=== PATIENT | male | born 1980 | race Caucasian/White ===

== ENCOUNTER 2018-10-26 11:55 | Outpatient (CLI) | payer OTHER ==
--- NOTE | 2018-10-26 14:13 | RAD ---
RIGHT KNEE FOUR VIEWS: INDICATIONS: Knee pain. FINDINGS: Joint spaces are preserved. No fracture. No joint effusion. No significant degenerative change. IMPRESSION: No acute findings. POS: [facility]
== END 2018-10-26 11:56 | disposition home or self-care (01) ==
LOC: SCSRAD 11:55
PROVIDERS: ATTEND Family Medicine
DX: M25.561 Pain in right knee (principal); S89.91XS Unspecified injury of right lower leg, sequela

== ENCOUNTER 2019-02-15 15:13 | Outpatient (CLI) | payer OTHER ==
--- NOTE | 2019-02-15 16:41 | MRI ---
MRI Lower Ext Jt Rt WO Con History: Knee pain Comparison: None Findings: Medial meniscus: Vertical longitudinal tear through the peripheral zone posterior horn body junction extending to the posterior horn sparing the root attachment. Lateral meniscus: Superior articular surface flap tear body anterior horn and posterior horn which ex tends into the anterior horn superior articular surface. 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 Posterior cruciate ligament is intact. Lateral collateral ligament and biceps tendon are abnormally thickened and scarred from prior rupture . The lateral collateral ligament does not appear to have a normal implantation upon the fibula with a 9 mm gap. Medial collateral ligament is intact. Extensor mechanism: Quadriceps tendon, patella, and patellar tendons are intact. Cartilage: Patellofemoral compartment: Intact Medial compartment: Intact Lateral compartment: Intact Muscles: Muscle signal and bulk is normal. Impression: 1. 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 2. Vertical longitudinal tear posterior horn body junction medial meniscus peripheral zone extending into the posterior horn sparing the root attachment. 3. Superior articular surface flap tear throughout the lateral meniscus with a small radial component of the anterior horn. 4. Retracted scarred distal insertion lateral collateral ligament with a 9 mm gap between the distal fibers and the fibular head.
== END 2019-02-15 15:14 | disposition home or self-care (01) ==
LOC: SCSMRI 15:13
PROVIDERS: ATTEND Family Medicine
DX: S89.91XS Unspecified injury of right lower leg, sequela (principal); S83.511D Sprain of anterior cruciate ligament of right knee, subsequent encounter; S83.241D Other tear of medial meniscus, current injury, right knee, subsequent encounter; S83.281D Other tear of lateral meniscus, current injury, right knee, subsequent encounter

== ENCOUNTER 2020-03-25 06:47 | Outpatient (CLI) | payer OTHER ==
[2020-03-25 15:13] LABS: #Basophils 0.1 10x3/uL (0.0-0.2); #Eosinphils 0.2 10x3/uL (0.0-0.5); #Monocytes 0.6 10x3/uL (0.0-1.1); #Neutrophils 3.3 10x3/uL (1.5-8.4); %Eosinophils 2.6 % (0.0-6.0); %Lymphocytes 41.3 % (18.0-47.0); %Monocytes 8.8 % (0.0-10.0); %Neutrophils 46.2 % (40.0-75.0); Hemoglobin 15.1 g/dL (14.0-18.0); Mean Corpuscular HGB CONC 34.8 G/DL (32.0-36.0); Mean Corpuscular Volume 91.9 fl (80.0-100.0); Platelet Count 232 10x3/uL (130-400); RBC Distribution Width 13.2 % (11.5-14.5); Red Blood Cell (RBC) Count 4.72 10x6/uL (4.40-5.80); White Blood Cell (WBC) Count 7.2 10x3/uL (4.5-11.0)
[2020-03-26 02:56] LABS: SARS-CoV-2 MS2 Positive; SARS-CoV-2 N Gene Negative; SARS-CoV-2 S Gene Negative; SARS-CoV-2 by NAA Not Detected (NotDetected); SARS-CoV-2 orf1ab Negative
== END 2020-03-25 06:48 | disposition home or self-care (01) ==
LOC: LABBT 06:47
PROVIDERS: ATTEND Orthopaedic Surgery
DX: Z01.812 Encounter for preprocedural laboratory examination (principal); S83.511A Sprain of anterior cruciate ligament of right knee, initial encounter; S83.422A Sprain of lateral collateral ligament of left knee, initial encounter; Z20.828 Contact with and (suspected) exposure to other viral communicable diseases
CPT/HCPCS: 85025; 87635; U0003

== ENCOUNTER 2020-03-28 05:48 | Observation (INO) | payer OTHER ==
[2020-03-27 11:21] VITALS: BMI 25.8
[2020-03-28] MEDS ORDERED: Fentanyl 100 MCG/2 ML VIAL ONE ×4 (06:01→11:04)
[2020-03-28] MEDS ORDERED: Vancomycin 1.5 GRAM/300 ML BAG ONE (06:11)
[2020-03-28] MEDS ORDERED: Midazolam HCl 2 mg/2 ml Vial ONE (06:30)
[2020-03-28] MEDS ORDERED: Fentanyl 100 MCG/2 ML VIAL IV PRN (07:14)
[2020-03-28] MEDS ORDERED: Ropivacaine 0.2% 550 ML 550 ML NERVE BLCK SCH (07:15)
[2020-03-28] MEDS ORDERED: Zolpidem Tartrate 5 MG TAB PO PRN (07:15)
[2020-03-28] MEDS ORDERED: Promethazine HCl 25 MG/ML VIAL IM PRN ×2 (07:15→10:35)
[2020-03-28] MEDS ORDERED: Ondansetron PF 4 MG/2 ML Vial IVP PRN (07:15)
[2020-03-28] MEDS ORDERED: HYDROcodone/Acetaminophen 10/325 mg Tablet PO PRN ×2 (07:15)
[2020-03-28] MEDS ORDERED: traMADol HCl 50 MG TAB PO PRN ×2 (07:15)
[2020-03-28] MEDS ORDERED: Morphine 2 MG/ML VIAL SLOW IVP PRN (07:33)
[2020-03-28] MEDS ORDERED: diphenhydrAMINE 50 MG CAP PO PRN (07:33)
[2020-03-28] MEDS ORDERED: Bisacodyl 10 MG SUPP PR PRN (07:33)
[2020-03-28] MEDS ORDERED: HYDROcodone/Acetaminophen 7.5/325 mg Tablet PO PRN (07:33)
[2020-03-28] MEDS ORDERED: Acetaminophen 500 MG TAB PO PRN (07:33)
[2020-03-28] MEDS ORDERED: Milk Of Magnesia 30 ML UDCUP PO PRN (07:33)
[2020-03-28] MEDS ORDERED: Methocarbamol 500 MG TAB PO PRN (07:33)
[2020-03-28] MEDS ORDERED: Ketorolac Tromethamine 30 MG/ML VIAL IVP PRN (10:35)
[2020-03-28] MEDS ORDERED: Ondansetron HCl/PF 4 MG/2 ML Vial IVP PRN (10:35)
[2020-03-28] MEDS ORDERED: Promethazine HCl 25 MG/ML VIAL SLOW IVP PRN (10:35)
[2020-03-28] MEDS ORDERED: HYDROmorphone 2 MG/ML VIAL SLOW IVP PRN (10:35)
[2020-03-28] MEDS ORDERED: Meperidine HCl/PF 25 MG/ML VIAL SLOW IVP PRN (10:35)
[2020-03-28] MEDS ORDERED: PROPOFOL 200 MG/20 ML VIAL ONE (10:37)
[2020-03-28] MEDS ORDERED: Dexamethasone 20 MG/5 ML VIAL ONE (10:37)
[2020-03-28] MEDS ORDERED: Lidocaine 1% PF 5 ML VIAL ONE (10:37)
[2020-03-28] MEDS ORDERED: Bupivacaine HCl 0.5%/Epinephrine 1:200,000/PF 30 ml Vial ONE (10:37)
[2020-03-28] MEDS ORDERED: Ondansetron PF 4 MG/2 ML Vial ONE (10:37)
[2020-03-28] MEDS: Ketorolac Tromethamine 30 MG/ML VIAL IVP SCH ×3 (13:44→23:33)
[2020-03-28] MEDS: Famotidine 20 MG TAB PO SCH ×2 (13:44→19:48)
[2020-03-28] MEDS: Dextrose 5 %-0.45 % NaCl 1,000 ML IV SCH ×2 (13:44→17:28)
[2020-03-28] MEDS: HYDROcodone/Acetaminophen 7.5/325 mg Tablet PO PRN ×2 (14:09→19:23)
[2020-03-28] MEDS: CEFAZOLIN 2 GM in Premix Bag 1 BAG IVPB SCH ×2 (16:36→23:31)
[2020-03-28] MEDS: Vancomycin 1.5 GRAM/300 ML BAG 1.5 GM in Premix Bag 1 BAG IVPB SCH (19:24)
[2020-03-29] MEDS: Dextrose 5 %-0.45 % NaCl 1,000 ML IV SCH (04:55)
[2020-03-29] MEDS: HYDROcodone/Acetaminophen 7.5/325 mg Tablet PO PRN (04:59)
[2020-03-29] MEDS: Ketorolac Tromethamine 30 MG/ML VIAL IVP SCH (05:00)
[2020-03-29] MEDS: Vancomycin 1.5 GRAM/300 ML BAG 1.5 GM in Premix Bag 1 BAG IVPB SCH (06:03)
[2020-03-29] MEDS: Famotidine 20 MG TAB PO SCH (08:10)
[2020-03-29 08:14] VITALS: BP 112/73; TEMP 97.7
--- NOTE | 2020-03-30 13:10 | OP ---
DATE OF PROCEDURE: 03/28/2020 PREOPERATIVE DIAGNOSIS: Right knee tear of the anterior cruciate ligament/lateral collateral ligament/lateral meniscus. POSTOPERATIVE DIAGNOSIS: Right knee tear of the anterior cruciate ligament/lateral collateral ligament/lateral meniscus. PROCEDURES PERFORMED: 1. Right knee exam under anesthesia. 2. Right knee arthroscopy with arthroscopically-assisted anterior cruciate ligament reconstruction using autologous patellar tendon graft. 3. Arthroscopic partial lateral meniscectomy. 4. Open primary repair of the fibular collateral ligament, followed by augmentation of the fibular collateral ligament with an autologous strip of biceps tendon. METAL WEATHER STRIPPER: Preston Larkin PA-C. The assistant foreman surgeon was present throughout the procedure to include harvesting of the ACL graft, drilling and placement of the new ACL graft, primary repair of the LCL as well as augmentation of the biceps tendon and closure of all knee wounds. ESTIMATED BLOOD LOSS: Minimal. COMPLICATIONS: None. ANESTHESIA: The patient had general anesthetic as well as a preoperative block. IMPLANTS: For the ACL, we used a 7 x 25 metal interference screw. We used Bicortical screw with a smooth washer on the tibia as a post. For the fibular collateral ligament, we tied stitches over top of a small dog bone for primary repair and we used a 7 x 23 [employer]posite Bio[employer] screw for the femoral fixation of our augmentation. INDICATIONS: Azael is a 39-year-old male, who is over a year out from injury to the knee, is presenting at this time for reconstruction of the ACL as well as primary repair and augmentation of his LCL. DESCRIPTION OF PROCEDURE: After all appropriate consent forms were explained and signed, he was taken to the operating room and at this time was given general anesthetic. Once the level of anesthesia was appropriate, exam under anesthesia confirmed laxity with varus stress as well as positive Papito's exam. He was stable with posterior drawer and the MCL was intact. At this time, tourniquet was placed on the thigh and leg was placed in arthroscopic leg catherine. The limb was at this time prepped and draped in standard surgical fashion. Limb was exsanguinated and the tourniquet was taken to 300 mmHg. Midline incision was made with 10 blade down through skin. Bovie was used to coagulate any brisk venous bleeding. New blade was used to take the paratenon off the underlying patellar tendon. A central third patellar tendon graft was harvested using a double 10 blade saw and osteotome. This was taken to the back table so that both bone plugs were made to size 10. The graft site was then loosely closed using multiple interrupted Vicryl sutures. The lateral portal was established, scope was placed into the knee joint. A needle localization technique was then used to make a medial working portal. Diagnostic arthroscopy commenced in the notch. The torn bucket-handle lateral meniscus was sitting in the front of the femoral condyle. The posterior horn attachment had been ripped off and it was just floating there in the front. At this time, a grasper was used to grasp on this edge and through the same portal, arthroscopic scissors were used to detached this torn portion of meniscus. This was removed with ease. We then gently debrided the anterior horn stump with a shaver. At this time, confirmation of the ACL tear was noted. PCL was intact. Patellofemoral joint was in good condition. The medial compartment was found to be intact. The lateral compartment showed the remnant of the lateral meniscus for the most part to be in good condition. There was a small horizontal cleavage component in the most lateral aspect of the posterior horn going into the body and the biter and mechanical shaver were used to debride this back to stable base. Again, all cartilaginous surfaces for the most part were in excellent condition. At this time, we then flexed the knee up and through the medial portal and [id number] guide was used to place a pin up and out the anterolateral thigh. A 10-mm reamer was used to ream our tunnel to a depth of 30. All loose bony and cartilaginous debris was removed from the knee joint. At this time, we then placed our tibial guide into the knee at 52.5 degrees. A pin was placed up into the knee joint. A 10-mm reamer was used to ream our tibial tunnel. Again, all loose bony and cartilaginous debris was removed from the knee joint. A red rasp and roverto were used to smooth off any rough edges at this time. We then went dry. We then placed our pin up and out the anterolateral thigh one more time, pulling our passing suture down through the tibia and using this to pull our graft into place. A 7 x 25 metal interference screw was used to fixate the femoral side. We then drilled, tapped and placed a bicortical screw with a smooth washer, tying our tibial strings over this in full extension and the posterior drawer being applied. At this time, we then turned our attention to the lateral side. A long lateral based incision was made down through skin. Bovie was used to coagulate any brisk venous bleeding. We then swept the tissues off the underlying IT band and biceps tendon. At this time we turned our attention to dissecting out and finding the peroneal nerve. Once this was done using scissor dissection, a vessel loop was placed around this, so we would not lose track of the nerve. At this time, we then entered into the biceps bursa finding the distal tip of our [place] LCL, which had pulled off the top of the fibula and retracted approximately 7 to 10 mm. This was freshened up on its edge and a loop of FiberWire was used to place stitches through this to grab hold of the fibular collateral and control it. The femoral attachment was found to be intact. We then cleaned off the superior aspect of the fibular head with ronguer and we then placed two drill holes and used a [employer] suture ligament passer to pull our stitches down and then tied the stitches over top of a dog bone doing primary repair of our fibular collateral ligament. This was done at approximately 20 degrees of flexion and a valgus stress being applied. Once this was done, we did feel that we needed to augment this and so it was decided to take a piece of autologous biceps tendon for augmentation. Again, the fibular attachment was left alone. We took approximately 10 cm of the central portion of the biceps tendon off the underlying muscle and we then sewed the end of this again with another fiber loop and at this time, this was sized to be between a 5 and a 6. We then found our anatomic LCL origin. We did go just proximal and anterior to this, placing a guide pin reaming with a 7-mm reamer and then placing the graft into the hole and fixating it with a [employer]posite Bio-Tenodes[employer] screw in standard fashion. Again, this was done in approximately 20 degrees of flexion with valgus stress being applied. Once this was done, the knee was ranged, was found to achieve full hyperextension of 3 to 5 degrees, was found to have full flexion without any issues. At this time, we then closed our remaining biceps tendon together with a running suture. We then thoroughly irrigated out the lateral wound. We also bone grafted our patellar and tibial defect sites followed by running a Vicryl suture to close the paratenon level. At this time, moist Ray-Julio sponges were placed into the wounds as 2 hours had been achieved. We then thoroughly irrigated. Got hemostasis of any brisk venous bleeding and finished closing with 2-0 Vicryl and ish on both incisions. At this time, a bulky sterile dressing was applied and the patient was then awakened and taken to recovery room in stable condition. All counts were correct at the end of the case and he did receive preoperative IV antibiotics. The patient will be nonweightbearing for 6 weeks secondary to the LCL reconstruction, but will be allowed to do range of motion as tolerated. Job ID: [id number] [facility]
== END 2020-03-29 11:45 | disposition home or self-care (01) ==
LOC: SDC 05:48 → SURG A 13:14
PROVIDERS: ADMIT Orthopaedic Surgery; ATTEND Orthopaedic Surgery
PROC: 0MRN47Z Replacement of Right Knee Bursa and Ligament with Autologous Tissue Substitute, Percutaneous Endoscopic Approach (ICD-10-PCS; principal; 2020-03-28)
PROC: 0SBC4ZZ Excision of Right Knee Joint, Percutaneous Endoscopic Approach (ICD-10-PCS; 2020-03-28)
PROC: 0MQN0ZZ Repair Right Knee Bursa and Ligament, Open Approach (ICD-10-PCS; 2020-03-28)
PROC: 3E0T3BZ Introduction of Anesthetic Agent into Peripheral Nerves and Plexi, Percutaneous Approach (ICD-10-PCS; 2020-03-28)
DX: S83.511A Sprain of anterior cruciate ligament of right knee, initial encounter (principal); S83.421A Sprain of lateral collateral ligament of right knee, initial encounter; S83.251A Bucket-handle tear of lateral meniscus, current injury, right knee, initial encounter; G89.18 Other acute postprocedural pain; L98.8 Other specified disorders of the skin and subcutaneous tissue; F41.9 Anxiety disorder, unspecified; F17.290 Nicotine dependence, other tobacco product, uncomplicated; Z79.899 Other long term (current) drug therapy; Z98.890 Other specified postprocedural states; X58.XXXA Exposure to other specified factors, initial encounter
CPT/HCPCS: 88305; 96365; 96366; 96367; 96375; 96376; A4306; C1713; G0378; J0690; J1100; J1885; J2250; J2405; J2704; J2795; J3010; J3370